=== PATIENT | female | born 1965 | race Caucasian/White ===

== ENCOUNTER 2021-08-20 20:50 | Emergency (ER) | payer MEDICARE ==
[2021-08-20 22:21] LABS: HEMOGLOBIN 14.1 gm/dl (12.3-15.3); RED BLOOD COUNT 4.59 M/UL (4.00-5.10); WHITE BLOOD COUNT 5.1 K/UL (4.5-11.0)
[2021-08-20 22:38] LABS: BUN/CREATININE RATIO 18 (0-10)
== END 2021-08-21 01:45 | disposition left against medical advice (07) ==
LOC: ER1 20:50
PROVIDERS: Physician Assistant
DX: S00.82XA Blister (nonthermal) of other part of head, initial encounter (principal); H00.011 Hordeolum externum right upper eyelid; H00.012 Hordeolum externum right lower eyelid; X58.XXXA Exposure to other specified factors, initial encounter
CPT/HCPCS: 80053; 83605; 85025; 85652; 86140; 87040; 99284; Q9967

== ENCOUNTER 2022-05-02 23:36 | Emergency (ER) | payer MEDICARE | END 2022-05-03 00:55 | disposition left against medical advice (07) | LOC: ER1 23:36 | DX: L03.115 Cellulitis of right lower limb (principal); L03.116 Cellulitis of left lower limb; J44.9 Chronic obstructive pulmonary disease, unspecified; F17.210 Nicotine dependence, cigarettes, uncomplicated | CPT/HCPCS: 99283 ==

== ENCOUNTER 2022-05-22 01:47 | Emergency (ER) | payer MEDICARE, OTHER | END 2022-05-22 02:51 | disposition left against medical advice (07) | LOC: ER1 01:47 | DX: L97.819 Non-pressure chronic ulcer of other part of right lower leg with unspecified severity (principal); R64 Cachexia; Z79.82 Long term (current) use of aspirin | CPT/HCPCS: 99283 ==